=== PATIENT | female | born 1935 | race Hispanic/Latino ===

== ENCOUNTER 2022-01-11 12:32 | Outpatient (CLI) | payer MEDICARE ==
--- NOTE | 2022-01-11 15:40 | Fluoroscopy Report ---
Cystogram Indication: N39.42. Patient with and intermittent urinary incontinence Technique: Single contrast Cystografin technique utilized to evaluate the urinary bladder and distal ureters. Findings: To begin the exam, a nurse inserted a Arrieta catheter into the urinary bladder. Next, I ins tilled approximately 300 mL of Cystografin 300 contrast and completely fill the bladder. No mucosal irregularity, mass, mass effect, or reflux. Post void imaging was also unremarkable. Impression: Unremarkable exam. Fluoroscopic time: 0.9 minutes Number of fluoroscopic images: 18 Signer Name: Chad Sapp MD Signed: 01/11/2022 3:35 PM Workstation Name: [id number]
== END 2022-01-11 12:33 | disposition home or self-care (01) ==
LOC: FLUORO 12:32
PROVIDERS: ATTEND Urology
DX: N39.42 Incontinence without sensory awareness (principal); E78.00 Pure hypercholesterolemia, unspecified; J44.9 Chronic obstructive pulmonary disease, unspecified; I10 Essential (primary) hypertension; K21.9 Gastro-esophageal reflux disease without esophagitis; Z98.890 Other specified postprocedural states; Z88.5 Allergy status to narcotic agent; Z88.0 Allergy status to penicillin; Z79.899 Other long term (current) drug therapy; Z88.8 Allergy status to other drugs, medicaments and biological substances; Z87.891 Personal history of nicotine dependence; Z90.710 Acquired absence of both cervix and uterus; Z90.49 Acquired absence of other specified parts of digestive tract
CPT/HCPCS: 51600; 74430; Q9958